=== PATIENT | male | born 1970 | race Caucasian/White ===

== ENCOUNTER 2017-06-19 08:19 | Observation (INO) | payer OTHER ==
[2017-06-18 10:08] VITALS: BP 107/70
[2017-06-18 10:41] LABS: HEMATOCRIT 48.7 % (39.2-51.8); HEMOGLOBIN 16.2 g/dL (13.7-18.0); WHITE BLOOD COUNT 6.6 x10^3/uL (3.4-10)
[2017-06-18 10:49] LABS: BLOOD UREA NITROGEN 29 mg/dL (7-18)
[~2017-06-19] VITALS: Ht 188 cm; Wt 93.3 kg
[~2017-06-19 08:19] MED LIST: ASPI-621 PO; ATOR-2 PO; CHOL100015 PO; EMPA1TAB PO; GLYB5TAB3 PO; INSU100V8 SQ; LOSA25TA5 PO; METF500T4 PO; METO25TA35 PO; PRAS10TA4 PO; SPIR25TA3 PO
[2017-06-19] MEDS ORDERED: HEPARIN 1,000 UNITS/ML, 10ML ONE (10:44)
[2017-06-19] MEDS ORDERED: LIDOCAINE 2%, 20ML ONE (10:44)
[2017-06-19] MEDS ORDERED: VERAPAMIL 2.5 MG/ML, 2ML ONE (10:44)
[2017-06-19] MEDS ORDERED: MIDAZOLAM 1 MG/ML, 5ML ONE ×2 (10:44→12:00)
[2017-06-19] MEDS ORDERED: FENTANYL PF 100 MCG/2ML ONE ×2 (10:44→12:00)
[2017-06-19] MEDS ORDERED: BIVALIRUDIN 250 MG ONE ×2 (10:44→11:53)
[2017-06-19] MEDS ORDERED: PRASUGREL 10 MG TABLET ONE (10:45)
[2017-06-19] MEDS: SODIUM CHLORIDE 0.9% 1,000 ML IV SCH ×2 (13:05→21:05)
[2017-06-19] MEDS ORDERED: ERGOCALCIFEROL 50,000 UNIT CAPSULE PO SCH (13:30)
[2017-06-19] MEDS ORDERED: INSULIN GLARGINE HUM REC ANLOG 20 UNIT SQ SCH (13:30)
[2017-06-19 18:53] VITALS: BP 116/77
[2017-06-19 19:26] LABS: IS PT STATUS REG ER OR PRE ER? NO
[2017-06-19] MEDS ORDERED: METOPROLOL TARTRATE 25 MG TABLET PO SCH (21:00)
[2017-06-19] MEDS ORDERED: INSULIN DETEMIR 100 UNITS/ML, PEN SQ-INSULIN SCH (21:00)
[2017-06-19] MEDS ORDERED: LOSARTAN 25MG TABLET PO SCH (21:00)
[2017-06-19] MEDS ORDERED: ATORVASTATIN 80 MG TABLET PO SCH (21:00)
[2017-06-19 21:16] VITALS: BP 99/66
[2017-06-19] MEDS: GlyBURIDE 5 MG TABLET PO SCH (21:24)
[2017-06-20 02:00] VITALS: BP 96/62
[2017-06-20] MEDS: SODIUM CHLORIDE 0.9% 1,000 ML IV SCH (05:05)
[2017-06-20 06:22] LABS: BLOOD UREA NITROGEN 24 mg/dL (7-18)
[2017-06-20 06:48] LABS: HEMATOCRIT 41.5 % (39.2-51.8); HEMOGLOBIN 13.9 g/dL (13.7-18.0)
[2017-06-20 07:45] VITALS: BP 101/66
[2017-06-20] MEDS ORDERED: EMPAGLIFLOZIN PO SCH (09:00)
[2017-06-20] MEDS ORDERED: PRASUGREL 10 MG TABLET PO SCH (09:00)
[2017-06-20] MEDS ORDERED: ASPIRIN 81 MG TABLET EC PO SCH (09:00)
[2017-06-20] MEDS ORDERED: LINAGLIPTIN PO SCH (09:00)
[2017-06-20] MEDS ORDERED: SPIRONOLACTONE 25 MG TABLET PO SCH (09:00)
[2017-06-20] MEDS: GlyBURIDE 5 MG TABLET PO SCH (09:06)
== END 2017-06-20 11:19 | disposition home or self-care (01) ==
LOC: CACL 08:19 → ORIP 13:05 → CACL 13:05 → 5SO 13:45
PROVIDERS: ADMIT Internal Medicine Cardiovascular Disease; ATTEND Internal Medicine Cardiovascular Disease
DX: I21.09 ST elevation (STEMI) myocardial infarction involving other coronary artery of anterior wall (principal); I25.10 Atherosclerotic heart disease of native coronary artery without angina pectoris; I42.9 Cardiomyopathy, unspecified; E78.2 Mixed hyperlipidemia; E78.00 Pure hypercholesterolemia, unspecified; E11.42 Type 2 diabetes mellitus with diabetic polyneuropathy; Z79.4 Long term (current) use of insulin
CPT/HCPCS: 36415; 80048; 82040; 82962; 84484; 85014; 85018; 85025; 93458; 96372; 99156; 99157; C1725; C1760; C1769; C1874; C1887; C1894; C9600; G0378; J0583; J1815; J2250; J3010; J3490; Q9967; J1644

== ENCOUNTER 2018-01-10 20:51 | Emergency (ER) | payer OTHER ==
[~2018-01-10] VITALS: Ht 188 cm; Wt 96.5 kg
[~2018-01-10 20:51] MED LIST changes: -METF500T4 PO; +METF500T5 PO
[2018-01-10] MEDS ORDERED: OXYMETAZOLINE NASAL SPRAY 0.05%, 15ML ONE (21:00)
[2018-01-10 21:52] VITALS: BP 105/82
== END 2018-01-10 21:55 | disposition home or self-care (01) ==
LOC: ED 21:45
DX: R04.0 Epistaxis (principal); E11.9 Type 2 diabetes mellitus without complications; I25.2 Old myocardial infarction; Z86.718 Personal history of other venous thrombosis and embolism
CPT/HCPCS: 99282

== ENCOUNTER → 2018-01-11 | Outpatient (CLI) | payer OTHER | END | disposition home or self-care (01) | LOC: CFH 12:43 | PROVIDERS: ATTEND Internal Medicine Cardiovascular Disease | DX: I42.9 Cardiomyopathy, unspecified (principal); I10 Essential (primary) hypertension; E78.5 Hyperlipidemia, unspecified; I25.2 Old myocardial infarction; E11.9 Type 2 diabetes mellitus without complications | CPT/HCPCS: 93306 ==

== ENCOUNTER 2019-02-04 13:59 | Outpatient (CLI) | payer OTHER | END 2019-02-04 23:59 | disposition home or self-care (01) | LOC: CFH 13:59 | PROVIDERS: ATTEND Internal Medicine Cardiovascular Disease | DX: I35.1 Nonrheumatic aortic (valve) insufficiency (principal); I25.2 Old myocardial infarction; E11.9 Type 2 diabetes mellitus without complications; E78.5 Hyperlipidemia, unspecified | CPT/HCPCS: 93306 ==

== ENCOUNTER → 2020-07-27 | Outpatient (CLI) | payer BC ==
[~2020-07-27] MED LIST changes: -ASPI-621 PO; +ASPI81TA45 PO; +LOSA25TA25 PO; -LOSA25TA5 PO; +METF500T17 PO; -METF500T5 PO; -SPIR25TA3 PO; +SPIR25TA5 PO
== END | disposition home or self-care (01) ==
LOC: CFH 12:50
PROVIDERS: ATTEND Internal Medicine Cardiovascular Disease
DX: I06.1 Rheumatic aortic insufficiency (principal); I42.9 Cardiomyopathy, unspecified
CPT/HCPCS: 93306